=== PATIENT | female | born 2000 ===

== ENCOUNTER → 2022-05-06 14:03 | Outpatient (BNVA) | payer OTHER, SELFPAY | PROVIDERS: Visit Provider Student in an Organized Health Care Education/Training Program | DX: M32.9 Systemic lupus erythematosus, unspecified (principal); R07.9 Chest pain, unspecified; M79.7 Fibromyalgia | CPT/HCPCS: 99202 ==

== ENCOUNTER → 2022-06-01 13:46 | Outpatient (BNVA) | payer OTHER, SELFPAY | PROVIDERS: Visit Provider Student in an Organized Health Care Education/Training Program | DX: M32.9 Systemic lupus erythematosus, unspecified (principal); R07.9 Chest pain, unspecified; M79.7 Fibromyalgia; Z79.899 Other long term (current) drug therapy | CPT/HCPCS: 99212 ==

== ENCOUNTER 2022-08-13 08:21 | Outpatient (REF) | payer OTHER, SELFPAY ==
[2022-08-13 08:41] LABS: MANUAL DIFF FLAG NO
[2022-08-13 08:59] LABS: Basophils Percent Auto 0.7 % (0-2); Eosinophils Percent Auto 0.3 % (0-4); Hematocrit 41.2 % (37.0-47.0); Hemoglobin 13.9 g/dl (12.0-16.0); Imm Gran Abs Auto 0.01 X10*3/uL (0.00-0.03); Imm Gran Pct Auto 0.2 % (0.0-0.4); Lymphocytes Absolute Auto 0.9 X10*3/uL (1.2-4.9); Lymphocytes Percent Auto 15.1 % (20-40); Mean Corpuscular HGB Conc 33.7 g/dl (31.0-35.0); Mean Corpuscular Hemoglobin 29.6 pg (27.0-33.0); Mean Corpuscular Volume 87.8 fL (80.0-98.0); Mean Platelet Volume 9.9 fL (9.4-12.3); Monocytes Absolute Auto 0.7 X10*3/uL (0.1-1.2); Monocytes Percent Auto 11.1 % (2-11); Neutrophils Absolute Auto 4.4 x10*3/uL (2.0-8.3); Neutrophils Percent Auto 72.6 % (45-73); Platelet Count 303 X10*3/uL (160-400); Red Blood Count 4.69 X10*6/uL (4.20-5.50); Red Cell Distribution Width 12.7 % (11.0-16.0); White Blood Count 6.1 X10*3/uL (4.8-10.8)
[2022-08-13 09:44] LABS: Alanine Aminotransferase 27 U/L (0-31); Albumin Level 4.3 g/dL (3.5-5.0); Alkaline Phosphatase 57 U/L (39-117); Anion Gap 13 (12-20); Aspartate Amino Transferase 20 U/L (5-31); Bilirubin Total 0.3 mg/dL (0.0-1.0); Blood Urea Nitrogen 9 mg/dL (9-16); C Reactive Protein 0.94 mg/dL (< or = 0.50); Calcium 9.2 mg/dL (8.4-10.2); Carbon Dioxide 23 mmol/L (22-29); Chloride 106 mmol/L (96-108); Estimated Glomerular Filt Rate > 60; Glucose Random 87 mg/dL (60-115); Potassium 3.8 mmol/L (3.3-5.1); Sodium 138 mmol/L (135-145); Total Protein 7.1 g/dL (6.5-8.0)
[2022-08-13 10:00] LABS: Erythrocyte Sedimentation Rate 12 MM/HR (0-20)
[2022-08-13 10:37] LABS: Appearance Urine Turbid; Color Urine Orange; Glucose Urine UA Negative (Negative); Leukocyte Esterase Urine Small (1+) (Negative); Nitrite Urine Negative (Negative); PH 5.5 (5.0-9.0); Specific Gravity - Urine >= 1.030 (1.005-1.025); UMIC TRIGGER UA YES; Urine Blood Large (3+) (Negative); Urine Ketones 15 mg/dL (Negative); Urine Protein 100 (2+) mg/dL (Neg-Trace)
[2022-08-13 10:53] LABS: Bacteria Urine 1+ (None Seen); RBC Urine >20 /HPF (0-2)
[2022-08-13 12:12] LABS: Protein/Creatinine Ratio, Ur 0.12 (<0.2); Total Protein Urine Random 46 mg/dL (<12)
[2022-08-15 14:33] LABS: Complement C3 128 mg/dL (83-193)
[2022-08-17 13:14] LABS: Anti DNA DS Antibody <1 IU/mL; Cardiolipin IgG Ab <2.0 GPL-U/mL; Cardiolipin IgM Ab <2.0 MPL-U/mL
[2022-08-18 04:54] LABS: Beta-2 Glycoprotein IgA <2.0 U/mL (<20.0); Beta-2 Glycoprotein IgG <2.0 U/mL (<20.0); Beta-2 Glycoprotein IgM 3.7 U/mL (<20.0)
[2022-08-20 00:13] LABS: PTT (LAC) Screen 32 sec (<=40)
== END 2022-08-13 08:22 | disposition home or self-care (01) ==
LOC: HO.LAB 08:21
PROVIDERS: Visit Provider Student in an Organized Health Care Education/Training Program
DX: M32.9 Systemic lupus erythematosus, unspecified (principal)
CPT/HCPCS: 36415; 80053; 81001; 84156; 85025; 85597; 85613; 85652; 85730; 86140; 86146; 86147; 86160; 86225

== ENCOUNTER 2022-08-17 14:51 | Outpatient (REF) | payer OTHER, SELFPAY ==
[2022-08-17 15:12] LABS: MANUAL DIFF FLAG NO
[2022-08-17 15:20] LABS: Basophils Percent Auto 0.4 % (0-2); Eosinophils Absolute Auto 0.1 X10*3/uL (0.0-0.4); Eosinophils Percent Auto 1.1 % (0-4); Hematocrit 40.9 % (37.0-47.0); Hemoglobin 13.7 g/dl (12.0-16.0); Imm Gran Abs Auto 0.06 X10*3/uL (0.00-0.03); Imm Gran Pct Auto 0.7 % (0.0-0.4); Lymphocytes Absolute Auto 2.1 X10*3/uL (1.2-4.9); Lymphocytes Percent Auto 25.4 % (20-40); Mean Corpuscular HGB Conc 33.5 g/dl (31.0-35.0); Mean Corpuscular Hemoglobin 29.7 pg (27.0-33.0); Mean Corpuscular Volume 88.5 fL (80.0-98.0); Mean Platelet Volume 9.6 fL (9.4-12.3); Monocytes Absolute Auto 0.3 X10*3/uL (0.1-1.2); Monocytes Percent Auto 4.1 % (2-11); Neutrophils Absolute Auto 5.7 x10*3/uL (2.0-8.3); Neutrophils Percent Auto 68.3 % (45-73); Platelet Count 325 X10*3/uL (160-400); Red Blood Count 4.62 X10*6/uL (4.20-5.50); Red Cell Distribution Width 12.6 % (11.0-16.0); White Blood Count 8.3 X10*3/uL (4.8-10.8)
[2022-08-17 16:51] LABS: Appearance Urine Clear; Color Urine Yellow; Glucose Urine UA Negative (Negative); Leukocyte Esterase Urine Negative (Negative); Nitrite Urine Negative (Negative); PH 5.5 (5.0-9.0); Specific Gravity - Urine 1.025 (1.005-1.025); Urine Blood Negative (Negative); Urine Ketones Negative (Negative); Urine Protein Negative (Neg-Trace)
[2022-08-17 16:57] LABS: Bacteria Urine None Seen (None Seen); Hyaline Casts Urine 0-2 /LPF (0-2); RBC Urine 0-2 /HPF (0-2); Squamous Epithelial Cell Urine 0-2 /HPF (0-2); WBC Urine 0-5 /HPF (0-5)
[2022-08-17 18:14] LABS: Total Protein Urine Random < 7 mg/dL (<12)
[2022-08-27 16:38] LABS: TPMT Activity 7
== END 2022-08-17 14:52 | disposition home or self-care (01) ==
LOC: HO.LAB 14:51
PROVIDERS: Visit Provider Student in an Organized Health Care Education/Training Program
DX: Z51.81 Encounter for therapeutic drug level monitoring (principal); M32.9 Systemic lupus erythematosus, unspecified; Z79.899 Other long term (current) drug therapy
CPT/HCPCS: 81001; 82657; 84156; 85025; 87086; 99212

== ENCOUNTER 2022-09-07 11:03 | Outpatient (RCR) | payer OTHER, SELFPAY ==
--- NOTE | 2022-09-07 12:39 | MHC.PT.EP ---
[facility] [place] Office [place] Office [place] Office [address] [phone] F: [phone] F: [phone] F: [phone] F: [phone] Physical Therapy Plan of Care Date of Evaluation: Date of Surgery: Diagnosis: PAIN IN RIGHT HIP Assessment: 22 YO FEMALE REF TO PT FOR Rt HIP PAIN SINCE 08/2022- SHE WAS RECENTLY DX W SLE (04/25)- SHE RESIDES W HER 2 CHILDREN, AGES 1 AND 2 YO IN A 4TH FLOOR APT. OBJECTIVELY, Pt HAS (+) GENU VALGUS COLLAPSE, WEAK LUMBOPELVIC/ PROX LE REGION, LIMITED MOBILITY Rt HIP, (+) MAURICIO Rt, AND PAIN IN HER Rt ITB/ TROCH AREA. FUNCTIONALLY, Pt HAS LIMITED STANDING, WALKING, BENDING TOLERANCE- SHE IS GUARDED W SQUATTING AND DISPLAYS DECR EFFICIENCY WITH HER GAIT MECH DUE TO Rt HIP COMPLEX PAIN. Pt WOULD BENEFIT FROM PT TO ADDRESS THE ABOVE FINDINGS AND DEV A HEP TO ALLOW Pt TO SELF-MANAGE HER PAIN AND SXS. 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 Manual therapy to restore motion and function. Therapeutic exercise to improve strength and flexibility. Neuromuscular re-education for posture and balance. Therapeutic activities to return to functional activities of daily living. Electronically signed by: GOPAL LEHMAN,PT Please sign and return to therapist. Thank you for your referral.
--- NOTE | 2022-09-21 11:34 | MHC.PT.DC ---
[facility] [place] Office [place] Office [place] Office [address] Izzy Nelson [address] [phone] F: [phone] F: [phone] F: [phone] F: [phone] Physical Therapy Discharge Report Diagnosis: PAIN IN RIGHT HIP Date of Surgery: Date of Evaluation: 09/07/22 Date of Discharge: 09/21/22 Treatments to Date: 1 Cancellations to Date: 0 No Shows to Date: 2 Discharge Status: Patient Elected to Stop Visit Non-compliance Discharge Summary: WE INITIATED A HEP AND POSTURAL EDUC TO REDUCE Rt L/S/HIP COMPLEX SXS; HOWEVER, Pt HAS BEEN UNABLE TO ATTEND HER SCHED PT APPTS- WE HAVE CALLED HER AND OFFERED TO ACCOMMODATE HER SCHEDULE/ NEEDS, ENCOURAGING HEP AND SOFT TISSUE WORK- TODAY, Pt STATED SHE DIDN'T WANT TO TRIAL PT AND WOULD PREFER THE SHOTS . Pt D/C THIS DATE, SHE DID NOT MEET HER PT GOALS. 22 YO FEMALE REF TO PT FOR Rt HIP PAIN SINCE 08/2022- SHE WAS RECENTLY DX W SLE (04/25)- Pt ALSO STATED SHE HAS URINARY INCONTINENCE S/P CHILDBIRTH x 2; SHE RESIDES W HER 2 CHILDREN, AGES 1 AND 2 YO IN A 4TH FLOOR APT. OBJECTIVELY, Pt HAS (+) GENU VALGUS COLLAPSE, WEAK LUMBOPELVIC/ PROX LE REGION, LIMITED MOBILITY Rt HIP, (+) MAURICIO Rt, AND PAIN IN HER Rt ITB/ TROCH AREA. FUNCTIONALLY, Pt HAS LIMITED STANDING, WALKING, BENDING TOLERANCE- SHE IS GUARDED W SQUATTING AND DISPLAYS DECR EFFICIENCY WITH HER GAIT MECH DUE TO Rt HIP COMPLEX PAIN. Pt WOULD BENEFIT FROM PT TO ADDRESS THE ABOVE FINDINGS AND DEV A HEP TO ALLOW Pt TO SELF-MANAGE HER PAIN AND SXS. Electronically signed by: GOPAL LEHMAN,PT Please sign and return to therapist. Thank you for your referral.
== END 2022-09-21 11:36 | disposition home or self-care (01) ==
LOC: HO.PT 11:03
PROVIDERS: Visit Provider Student in an Organized Health Care Education/Training Program
DX: M25.551 Pain in right hip (principal); M76.31 Iliotibial band syndrome, right leg
CPT/HCPCS: 97110; 97162

== ENCOUNTER 2025-07-04 09:16 | Outpatient (AMB) | payer OTHER, SELFPAY ==
--- NOTE | 2025-07-04 09:31 | A.OFFVIS_ITS ---
Vital Signs 07/04/25 09:39 Height 4 ft 11 in Weight 174 lb 9.698 oz BMI 35.3 BP 102/72 Blood Pressure Location Lt brachial Position Sitting Pulse 67 Pulse Source Pulse Oximeter Pulse Oximetry (%) 98 Oxygen Delivery Method Room Air Intake Visit Reasons: SLE Intake Note: Patient presents for SLE follow up. Allergies citalopram Adverse Reaction (Mild, Verified 07/04/25 09:35) Rash HPI Comments Details: Patient is a 24-year-old female current every day smoker with GERD, SLE and fibromyalgia here today for follow up Interval History: Patient last seen 08/17/[address] Lara - Hydroxychloroquine 200mg bid - Patient stated that over the last 2-3 months she had episodes of malar rash, reddish discoloration of her fingertips associated with tingling. Occasional fatigue. - She took prednisone 10 mg daily when she had the facial rash and her rash resolved in 1 day. When she did her lab work last Monday she was on her period and she was having some pelvic pain. - She was told by OBGYN that she has recurrent yeast infection. She denies any burning with urination. She denies any swollen joints. - No changes made to medication Today - Not on DMARDs - Has not been on HCQ for the past 3 years - Still smoking - Rash and joint pain has been stable - Still has erythema on her face in the malar distribution - Also has been noticing that her left leg gives out Rheumatologic History: Initial history: 21 year old female with a past medical history of asthma, anxiety, gestational diabetes, fatty liver is here for evaluation of a positive JAMEY and possible new onset SLE. Patient stated she has had generalized aches and pains since she was a kid however over the last year they have been worse. She has pain in her right hand as well as her knees and feet, pain in her feet is associated with tingling and numbness. She has stiffness lasting all day. She had a butterfly rash on her face since 2019, but has been more frequent recently. This rash is brought on by sun exposure. She has chest pain with deep breath, sometimes exacerbated by lying flat. She also feels fatigued after sun exposure. She has her rash on her lower lip associated with a small ulcer. She has headaches & brain fog. She denies blood or froth urine. She had 3 pregnancies 2 live births and 1 induced . No miscarriages no DVT/PE. 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 Well appearing and in no apparent painful distress MSK Hands * Right Hand: Able to make a fist. No swelling or tenderness to palpation of the MCPs, PIPs or DIPs. No deformities noted. * Left Hand: Able to make a fist. No swelling or tenderness to palpation of the MCPs, PIPs or DIPs. No deformities noted. Wrists * Right Wrist: Full ROM to flexion and extension. No swelling or TTP * Left Wrist: Full ROM to flexion and extension. No swelling or TTP Elbows * Right Elbow: Full ROM. No swelling or TTP. No TTP of the medial epicondyle. No TTP of the lateral epicondyle * Left Elbow: Full ROM. No swelling or TTP. No TTP of the medial epicondyle. No TTP of the lateral epicondyle Shoulders * Right shoulder: Full ROM. No swelling noted. No TTP of the AC joint. No TTP of the subacromial bursa. No TTP of the posterior shoulder * Left shoulder: Full ROM. No swelling noted. No TTP of the AC joint. No TTP of the subacromial bursa. No TTP of the posterior shoulder Knees * Right knee: Full ROM. No swelling noted. No TTP of the knee joint line. No TTP of pes anserine bursa * Left knee: Full ROM. No swelling noted. No TTP of the knee joint line. No TTP of pes anserine bursa. Ankles * Right ankle: Good ankle dorsiflexion and plantar flexion. No swelling. No TTP of the ankle joint * Left ankle: Good ankle dorsiflexion and plantar flexion. No swelling. No TTP of the ankle joint Feet * Right foot: Negative squeeze test * Left foot: Negative squeeze test Tender points? * No tenderness to palpation of the bilateral trapezius, supraspinatus, anterior costochondral junctions, bilateral suboccipital muscle insertions SKIN No rashes Normal nailfold capilloroscopy Vital Signs: Last Vital Signs Pulse 67 07/04/25 09:39 BP 102/72 07/04/25 09:39 Pulse Ox 98 07/04/25 09:39 Oxygen Delivery Method Room Air 07/04/25 09:39 BMI result Body Mass Index 35.3 Results Reviewed Results Reviewed: Laboratory Tests 08/13/22 08/17/22 08:40 15:10 WBC 8.3 RBC 4.62 Hgb 13.7 Hct 40.9 Plt Count 325 ESR 12 Sodium 138 Potassium 3.8 Chloride 106 Carbon Dioxide 23 BUN 9 Creatinine 0.93 AST 20 ALT 27 C-Reactive Protein 0.94 H Laboratory Tests 08/17/22 15:10 TPMT Activity, Quant 7 L Laboratory Tests 08/13/22 08:40 Double Strand DNA Ab <1 Beta-2-GPI IgG Ab <2.0 Beta-2-GPI IgA Ab <2.0 Beta-2-GPI IgM Ab 3.7 Anti-Cardiolipin IgG Ab <2.0 Anti-Cardiolipin IgM Ab <2.0 Complement C3 128 Complement C4 33 Laboratory Tests 08/17/22 16:10 Urine Color Yellow Ur Specific [place] 1.025 Urine Protein Negative Urine Blood Negative U Random Total Protein < 7 Assessment & Plan Assessment & Plan (1) SLE (systemic lupus erythematosus): Code(s): M32.9 - Systemic lupus erythematosus, unspecified Category: Medical Qualifiers: Systemic lupus erythematosus type: unspecified Systemic lupus erythematosus organ involvement: other Qualified Code(s): M32.19 - Other organ or system involvement in systemic lupus erythematosus Plan: #SLE Patient is a 24-year-old current everyday smoker here today to reestablish care for management of her lupus. Patient likely has mild lupus given that she has been off treatment for the past 3 years. She does have some faint malar rashes and Raynaud's but otherwise her exam was unremarkable. Discussed with patient the importance of maintaining hydroxychloroquine in the setting of lupus. Patient is willing to take 1 tablet daily. Also encouraged patient to stop smoking and lose weight, especially in the setting of a previous diagnosis of fatty liver disease. Plan - Restart Hydroxychloroquine 200mg daily - Labs today: CBC, CMP, ESR, CRP, C3, C4, dsDNA, UA, UPC - RTC 6 months - Labs before visit: CBC, CMP, ESR, CRP, C3, C4, dsDNA, UA, UPC (2) Long-term use of hydroxychloroquine: Code(s): Z79.899 - Other alf (current) drug therapy Category: Medical Plan: #Long-term Use of Hydroxychloroquine Discussed with patient the risks and benefits of hydroxychloroquine in managing the rheumatic condition Benefits include: - Reduced pain, reduce mortality, maintenance of remission and reduction of flares Risks include: - GI upset, skin hyperpigmentation, retinal toxicity (especially after more than 5 years of use), myopathy Advised yearly ophthalmology visits Plan This is my 1st visit with the patient. Patient has not been seen in the office since 2021. I spent 60 minutes reviewing the record and labs, taking a history, examining the patient, discussing the treatment plan, ordering diagnostic work up, answering questions, writing letter and documenting in the medical record Orders: Orders Complete Blood Count Auto Diff 6 Months M32.9 - Systemic lupus erythematosus, unspecified Erythrocyte Sedimentation Rate 6 Months M32.9 - Systemic lupus erythematosus, unspecified Complement C3 6 Months M32.9 - Systemic lupus erythematosus, unspecified Complement C4 6 Months M32.9 - Systemic lupus erythematosus, unspecified Anti DNA DS Antibody 6 Months M32.9 - Systemic lupus erythematosus, unspecified UA ClnCatch+Micro w/rflx Cult 6 Months M32.9 - Systemic lupus erythematosus, unspecified C Reactive Protein 6 Months M32.9 - Systemic lupus erythematosus, unspecified Comprehensive Met. Panel 6 Months M32.9 - Systemic lupus erythematosus, unspecified Erythrocyte Sedimentation Rate Today M32.9 - Systemic lupus erythematosus, unspecified Protein Creatinine Ratio, Ur Today M32.9 - Systemic lupus erythematosus, unspecified Protein Creatinine Ratio, Ur 6 Months M32.9 - Systemic lupus erythematosus, unspecified Complete Blood Count Auto Diff Today M32.9 - Systemic lupus erythematosus, unspecified Complement C3 Today M32.9 - Systemic lupus erythematosus, unspecified Complement C4 Today M32.9 - Systemic lupus erythematosus, unspecified Anti DNA DS Antibody Today M32.9 - Systemic lupus erythematosus, unspecified UA ClnCatch+Micro w/rflx Cult Today M32.9 - Systemic lupus erythematosus, unspecified C Reactive Protein Today M32.9 - Systemic lupus erythematosus, unspecified Comprehensive Met. Panel Today M32.9 - Systemic lupus erythematosus, unspecified Coding Level of Care Code New Pt Level 5 (43808) Complex EM visit Add On G2211 Diagnoses Systemic lupus erythematosus with other organ involvement, unspecified SLE type M32.19 Systemic lupus erythematosus type: unspecified Systemic lupus erythematosus organ involvement: other Long-term use of hydroxychloroquine Z79.899
[2025-07-04 09:39] VITALS: BP 102/72; PULSE 67; O2SAT 98; BMI 35.3
== END 2025-07-04 10:43 | disposition home or self-care (01) ==
LOC: HO.RHES 09:17
PROVIDERS: PCP Student in an Organized Health Care Education/Training Program; Visit Provider Student in an Organized Health Care Education/Training Program
DX: M32.19 Other organ or system involvement in systemic lupus erythematosus (principal); Z79.899 Other long term (current) drug therapy
CPT/HCPCS: 99205; G2211

== ENCOUNTER 2025-07-04 09:16 | Outpatient (REF) | payer OTHER, SELFPAY ==
[2025-07-04 13:19] LABS: MANUAL DIFF FLAG NO
[2025-07-04 13:25] LABS: Hematocrit 44.1 % (37.0-47.0); Hemoglobin 14.4 g/dl (12.0-16.0); Imm Gran Abs Auto 0.03 X10*3/uL (0.00-0.03); Imm Gran Pct Auto 0.3 % (0.0-0.4); Lymphocytes Absolute Auto 2.3 X10*3/uL (1.2-4.9); Mean Corpuscular HGB Conc 32.7 g/dl (31.0-35.0); Mean Corpuscular Hemoglobin 29.2 pg (27.0-33.0); Mean Corpuscular Volume 89.5 fL (80.0-98.0); NRBC Abs Auto 0.000 X10*3/uL (0.0-0.012); NRBC Pct Auto 0.0 /100WBC (0.0-0.2); Platelet Count 369 X10*3/uL (160-400); Red Blood Count 4.93 X10*6/uL (4.20-5.50); White Blood Count 11.8 X10*3/uL (4.8-10.8)
[2025-07-04 13:26] LABS: Appearance Urine Clear; Glucose Urine UA Negative (Negative); PH 6.5 (5.0-9.0); Specific Gravity - Urine 1.015 (1.005-1.025)
[2025-07-04 13:34] LABS: Alanine Aminotransferase 28 U/L (0-31); Albumin Level 4.3 g/dL (3.5-5.0); Alkaline Phosphatase 70 U/L (39-117); Anion Gap 11 (12-20); Aspartate Amino Transferase 29 U/L (5-31); Blood Urea Nitrogen 13 mg/dL (9-16); Calcium 8.9 mg/dL (8.4-10.2); Carbon Dioxide 27 mmol/L (22-29); Chloride 105 mmol/L (96-108); Estimated Glomerular Filt Rate > 60; Potassium 4.0 mmol/L (3.3-5.1); Sodium 139 mmol/L (135-145); Total Protein 7.3 g/dL (6.5-8.0)
[2025-07-04 14:24] LABS: Total Protein Urine Random < 7 mg/dL (<12)
== END 2025-07-04 09:17 | disposition home or self-care (01) ==
LOC: HO.HKASLDS 09:16
PROVIDERS: PCP Student in an Organized Health Care Education/Training Program; Visit Provider Student in an Organized Health Care Education/Training Program
DX: M32.19 Other organ or system involvement in systemic lupus erythematosus (principal); Z01.84 Encounter for antibody response examination; Z79.899 Other long term (current) drug therapy
CPT/HCPCS: 36415; 80053; 81001; 82570; 84156; 85025; 85652; 86140; 86160; 86225; 99202